=== PATIENT | female | born 1985 | race African-American/Black ===

== ENCOUNTER 2019-11-06 15:15 | Outpatient (CLI) | payer OTHER, SELFPAY ==
[2019-11-06 16:28] LABS: Beta HCG Quantitative < 2.39 mIU/ML
== END 2019-11-06 15:16 | disposition home or self-care (01) ==
LOC: ANHLAB 15:17
PROVIDERS: Visit Provider Student in an Organized Health Care Education/Training Program
DX: Z97.5 Presence of (intrauterine) contraceptive device (principal)
CPT/HCPCS: 36415; 84702

== ENCOUNTER 2020-09-11 13:02 | Outpatient (CLI) | payer OTHER, SELFPAY ==
--- NOTE | ~2020-09-11 | US_ITS ---
EXAMINATION: US pelvic complete w TV EXAM DATE: 09/11/2020 13:48 INDICATION: R10.2 - Pelvic and perineal pain pelvic pain . TECHNIQUE: Pelvic transabdominal and transvaginal sonogram was performed. There are multiple graysca le and Doppler images available for interpretation. There is no prior study for comparison. FINDINGS: Scanning in left lower quadrant palpable area of patient's clinical concern demonstrates no abdominal wall defect, subcutaneous or abdominal wall mass. Uterus measures 7.2 x 3.3 x 4.1 cm, is anteverted with IUD in the central aspect of the endometrium. Endometrial stripe is within normal limits. There is no free pelvic fluid. Right adnexa: The ovary measures 1.7 x 4.1 x 1.8 cm and is morphologically normal. Ovarian vascular f low confirmed. Left adnexa: The ovary measures 1.7 x 3.0 x 1.5 cm and is morphologically normal. Ovarian vascular fl ow confirmed. IMPRESSION: Unremarkable pelvic ultrasound exam. IUD in position. Reviewed, dictated and finalized at location A. L [employer]
== END 2020-09-11 13:03 | disposition home or self-care (01) ==
PROVIDERS: PCP Family Medicine; Visit Provider Student in an Organized Health Care Education/Training Program
DX: R10.2 Pelvic and perineal pain (principal); Z30.431 Encounter for routine checking of intrauterine contraceptive device
CPT/HCPCS: 76830; 76856